=== PATIENT | female | born 1995 | race African-American/Black ===

== ENCOUNTER 2023-12-05 16:05 | Emergency (ER) | payer SELFPAY ==
[2023-12-05 16:10] VITALS: BP 128/74
--- NOTE | 2023-12-05 16:47 | ED.GENMED ---
History of Present Illness
General
Chief Complaint: Skin Surface Trauma
Time Seen by Provider: 12/05/23 16:47
History of Present Illness
History of Present Illness:
HPI: The patient presents due to laceration and was sent here by urgent care. She cut her hand on a broken glass. She has no other concerns. There is no dysfunction.
EXAM:
GENERAL: Well appearing in no distress
HEENT: Moist oral mucosa
NEUROLOGIC: Excellent strength all extremities, no obvious coordination deficits
PSYCHIATRIC: Appropriate mental status, normal insight and judgement
EXTREMITIES: Nontender, no edema, moves all extremities equally
SKIN: There is a 3 cm laceration to the radial aspect of the right thumb
TIME OF INITIAL ENCOUNTER: 4:50 PM
NUMBER AND COMPLEXITY OF PROBLEMS ADDRESSED AT THE ENCOUNTER
� Chronic conditions affecting care: Is a smoker
� Acute Exacerbation and/or Progression of Chronic Illness: This is an acute problem
� Differential Diagnosis includes: Laceration, no evidence of foreign body based on exploration of the wound
AMOUNT AND/OR COMPLEXITY OF DATA TO BE REVIEWED AND ANALYZED
� I performed an independent evaluation of and my interpretation is:
EKG:
CT:
X-rays:
Laboratory Studies:
Other:
� Review of other/old records: The patient was here with an avulsion injury of the skin of the thumb in 2019
� Clinical information was obtained by an independent historian: None needed
� Prescriptions/Medications Considered but not given:
� Further testing considered but not performed:
RISK OF COMPLICATIONS AND/OR MORBIDITY OR MORTALITY OF PATIENT MANAGEMENT
� Social determinants of health affecting care: Lives at home
� Discussion with other providers:
� Escalation of care including admission/observation vs risk of discharge considered: The wound was cleaned, irrigated, and repaired. She states tetanus status is up-to-date.
Past History
Past History
ED Past Medical History: None
ED Past Surgical History: None
Social History
Tobacco: Non-smoker
Alcohol: None
Drug: None
Personal: Single
Living: with family
Family History
Family History: Other (Noncontributory)
Phy Exam
Physical Exam
Physical Exam:
See HPI
Course
Vital Signs
Initial and Last Documented VS:
Initial Vital Signs
Temp Pulse Resp BP Pulse Ox
98.2 F 62 16 128/74 100
12/05/23 16:10 12/05/23 16:10 12/05/23 16:10 12/05/23 16:10 12/05/23 16:10
Last Documented Vital Signs
Temp Pulse Resp BP Pulse Ox
98.2 F 62 16 128/74 100
12/05/23 16:10 12/05/23 16:10 12/05/23 16:10 12/05/23 16:10 12/05/23 16:10
Procedures
Laceration Closure
Right Proximal Thumb:
Status of Wound: clean
Description of Wound Edges: sharp
Preparation: cleaned with saline and other (Alcohol prep)
Anesthesia: 1% Lidocaine and Digital-Regional
Revision/Debridement: routine- no revision
Wound exploration: explored to base- no FB
Type of Closure: single layer closure
Skin Closure Material: 4-0 nylon
Number of sutures: 4
*Critical Care Note
Total Time (30-74mins, 75-104mins- exclusive of procedures): Not Applicable
ED Attending Note
-
Portions of this chart may have been created with voice recognition software.� Occasional wrong word or��sound alike� substitutions may have occurred due to the inherent limitations of voice recognition software.
Discharge Plan
Departure
Patient Disposition: Home (Routine Discharge)
Date of Disposition: 12/05/23
Time of Disposition: 17:08
Patient with high blood pressure during this ER visit?: Yes
Discharge Problem:
Laceration
Instructions: Laceration Repair With Stitches (DC)
Prescriptions:
No Action
cephalexin 500 MG capsule
500 mg PO BID Qty: 14 0RF
Referrals:
NONE,* [Family Provider] -
Activity Restrictions/Additional Instructions:
I placed 4 stitches. Have these removed by a doctor or nurse in approximately 7 to 10 days. Take the dressing off tomorrow. You can continue to use an antibiotic ointment over the next couple of days and you can also just use a Band-Aid to cover
the wound.
Interventions
Interventions:
*Risk Screen - Suicide Last Done: 12/05/23 16:06
*General Assessment Last Done: 12/05/23 16:48
*Neglect/Abuse Screening Last Done: 12/05/23 16:48
*ED COVID-19 Vaccine History Last Done: 12/05/23 16:48
Discharge Date and Time
Print Language: SERBIAN
== END 2023-12-05 17:53 | disposition home or self-care (01) ==
LOC: EMR 16:05
PROVIDERS: EMERGENCY PHYSICIAN Emergency Medicine
DX: S61.011A Laceration without foreign body of right thumb without damage to nail, initial encounter (principal); W25.XXXA Contact with sharp glass, initial encounter; R03.0 Elevated blood-pressure reading, without diagnosis of hypertension; F17.200 Nicotine dependence, unspecified, uncomplicated; Z88.8 Allergy status to other drugs, medicaments and biological substances
CPT/HCPCS: 99282; 12002